=== PATIENT | female | born 1990 | race Caucasian/White ===

== ENCOUNTER 2018-08-01 12:30 | Emergency (ER) | payer SELFPAY ==
[2018-08-01 14:01] LABS: ABS Basophils 0.1 10^3/ul (0-0.2); ABS Eosinophils 0.2 10^3/ul (0-0.6); ABS Lymphocytes 2.1 10^3/ul (1.0-4.8); ABS Monocytes 0.8 10^3/ul (0-0.8); ABS Neutrophils 11.3 10^3/ul (1.5-7.7); ABS Nucleated RBC 0 10^3/ul; Eosinophil % 1.4 %; Hematocrit 45 % (35-47); Hemoglobin 15.1 g/dl (12.0-16.0); Lymphocyte % 14.8 %; Mean Corpuscular HGB Conc 34 g/dl (31-36); Mean Corpuscular Hemoglobin 28 pg (27-31); Mean Corpuscular Volume 82 fL (80-97); Mean Platelet Volume 8.6 fL (7.4-10.4); Nucleated Red Blood Cells % 0; Platelet Count 277 10^3/ul (150-450); Red Blood Count 5.44 10^6/ul (4.00-5.40); Red Cell Distribution Width 13 % (10.5-15); White Blood Count 14.5 10^3/ul (3.5-10.8)
[2018-08-01 14:17] LABS: ALT 42 U/L (7-52); AST 55 U/L (13-39); Albumin 4.3 g/dL (3.2-5.2); Albumin/Globulin Ratio 1.3 (1-3); Alkaline Phosphatase 68 U/L (34-104); Anion Gap 9 mmol/L (2-11); BUN/Creatinine Ratio 16.7 (8-20); Blood Urea Nitrogen 14 mg/dL (6-24); C Reactive Protein 7.98 mg/L (<8.01); CO2 Carbon Dioxide 28 mmol/L (22-32); Calcium 9.6 mg/dL (8.6-10.3); Chloride 101 mmol/L (101-111); EGFR Non-African American 80.2 (>60); Globulin 3.2 g/dL (2-4); Glucose 107 mg/dL (70-100); Potassium 4.2 mmol/L (3.5-5.0); Sodium 138 mmol/L (135-145); Total Protein 7.5 g/dL (6.4-8.9)
[2018-08-01 14:22] LABS: HCG Pregnancy < 0.60 mIU/mL
--- NOTE | 2018-08-01 14:35 | ED ---
Abdominal Pain/Female - HPI Summary HPI Summary: This pt is a 27 y/o female presenting to [facility] c/o upper abd pain since this morning. Pt reports this morning at around 11:00 while she was working on her computer when she had sudden onset of abd pain. She describes upper abd pain as burning that radiates all the way to her back. She additionally notes nausea and vomiting. Denies fever, diarrhea, chest pain, SOB. She currently rates her pain 7/10 in severity. Pt had a bagel with sausage, egg, and cheese and coffee this morning 1 hour prior to onset of abd pain. Pt denies having this abd pain in the past. Denies any PMHx. Denies hx of GERD or gastritis. LMP: currently on it. - History of Current Complaint Chief Complaint: EDAbdPain Stated Complaint: ABD AND BACK PAIN Time Seen by Provider: 08/01/18 13:57 Hx Obtained From: Patient Hx Last Menstrual Period: 02/27/14 Onset/Duration: Sudden Onset, Lasting Hours, Still Present Timing: Hours Severity Currently: Moderate Pain Intensity: 7 Pain Scale Used: 0-10 Numeric Location: Other - upper abd Radiates: Yes Radiates to: Back Character: Burning Aggravating Factor(s): Nothing Alleviating Factor(s): Nothing Associated Signs and Symptoms: Positive: Back Pain, Nausea, Vomiting. Negative : Fever, Chest Pain, Diarrhea Allergies/Adverse Reactions: Allergies Allergy/AdvReac Type Severity Reaction Status Date / Time No Known Allergies Allergy Verified 08/01/18 12:37 Home Medications: Home Medications Desogestrel-Ethinyl Estradiol [Isibloom 28 Day Tablet] 1 tab PO DAILY 08/01/18 [ History Confirmed 08/01/18] PMH/Surg Hx/FS Hx/Imm Hx Endocrine/Hematology History: Denies: Hx Diabetes Cardiovascular History: Denies: Hx Hypertension GI History: Denies: Hx Gastroesophageal Reflux Disease, Other GI Disorders - gastritis - Surgical History Surgery Procedure, Year, and Place: none Infectious Disease History: No Infectious Disease History: Denies: History Other Infectious Disease, Traveled Outside the [place] in Last 30 Days - Family History Known Family History: Negative: Cardiac Disease, Hypertension, Diabetes - Social History Alcohol Use: Occasionally Substance Use Type: Reports: None Smoking Status (MU): Current Some Day Smoker Review of Systems Negative: Fever, Chills Negative: Chest Pain Negative: Shortness Of Breath Positive: Abdominal Pain, Vomiting, Nausea. Negative: Diarrhea Musculoskeletal: Other - POS: back pain All Other Systems Reviewed And Are Negative: Yes Physical Exam - Summary Physical Exam Summary: VITAL SIGNS: Reviewed. GENERAL: Patient is a well-developed and nourished female who is lying comfortable in the stretcher. Patient is not in any acute respiratory distress. HEAD AND FACE: Normocephalic and atraumatic. EYES: PERRLA, EOMI x 2, No injected conjunctiva. EARS: Hearing grossly intact. Ear canals and tympanic membranes are WNL. MOUTH: Oropharynx within normal limits. NECK: Supple, trachea is midline, no adenopathy, no JVD. CHEST: Symmetric, no tenderness at palpation LUNGS: Clear to auscultation bilaterally. No wheezing or crackles. CVS: RRR, S1 and S2 present, no murmurs or gallops appreciated. ABDOMEN: Soft, some epigastric tenderness. No signs of distention. Positive bowel sounds. No rebound no guarding, and no masses palpated. No abdominal bruit or pulsations. EXTREMITIES: FROM in all major joints, no edema, no cyanosis or clubbing. NEURO: Alert and oriented x 3. No acute neurological deficits. Speech is normal. SKIN: Dry and warm Triage Information Reviewed: Yes Vital Signs On Initial Exam: Initial Vitals Temp Pulse Resp BP Pulse Ox 97.1 F 78 15 144/82 98 08/01/18 12:34 08/01/18 12:34 08/01/18 12:34 08/01/18 12:34 08/01/18 12:34 Vital Signs Reviewed: Yes Diagnostics - Vital Signs Vital Signs Temp Pulse Resp BP Pulse Ox 08/01/18 12:34 97.1 F 78 15 144/82 98 - Laboratory Lab Results: Lab Results 08/01/18 08/01/18 Range/Units 13:45 13:45 WBC 14.5 H (3.5-10.8) 10^3/ul RBC 5.44 H (4.00-5.40) 10^6/ul Hgb 15.1 (12.0-16.0) g/dl Hct 45 (35-47) % MCV 82 (80-97) fL MCH 28 (27-31) pg MCHC 34 (31-36) g/dl RDW 13 (10.5-15) % Plt Count 277 (150-450) 10^3/ul MPV 8.6 (7.4-10.4) fL Neut % (Auto) 78.1 % Lymph % (Auto) 14.8 % [place] % (Auto) 5.2 % Eos % (Auto) 1.4 % Baso % (Auto) 0.5 % Absolute Neuts (auto) 11.3 H (1.5-7.7) 10^3/ul Absolute Lymphs (auto) 2.1 (1.0-4.8) 10^3/ul Absolute Monos (auto) 0.8 (0-0.8) 10^3/ul Absolute Eos (auto) 0.2 (0-0.6) 10^3/ul Absolute Basos (auto) 0.1 (0-0.2) 10^3/ul Absolute Nucleated RBC 0 10^3/ul Nucleated RBC % 0 Sodium 138 (135-145) mmol/L Potassium 4.2 (3.5-5.0) mmol/L Chloride 101 (101-111) mmol/L Carbon Dioxide 28 (22-32) mmol/L Anion Gap 9 (2-11) mmol/L BUN 14 (6-24) mg/dL Creatinine 0.84 (0.51-0.95) mg/dL Est GFR ( Amer) 97.0 (>60) Est GFR (Non-Af Amer) 80.2 (>60) BUN/Creatinine Ratio 16.7 (8-20) Glucose 107 H (70-100) mg/dL Calcium 9.6 (8.6-10.3) mg/dL Total Bilirubin 0.70 (0.2-1.0) mg/dL AST 55 H (13-39) U/L ALT 42 (7-52) U/L Alkaline Phosphatase 68 (34-104) U/L C-Reactive Protein 7.98 (<8.01) mg/L Total Protein 7.5 (6.4-8.9) g/dL Albumin 4.3 (3.2-5.2) g/dL Globulin 3.2 (2-4) g/dL Albumin/Globulin Ratio 1.3 (1-3) Lipase 11 (11.0-82.0) U/L Beta HCG, Quant < 0.60 mIU/mL Result Diagrams: 08/01/18 13:45 08/01/18 13:45 Lab Statement: Any lab studies that have been ordered have been reviewed, and results considered in the medical decision making process. - Radiology Abdomen XR Radiology Interpretation Completed By: Radiologist Summary of Radiographic Findings: IMPRESSION: Fluid-filled stomach without evidence of free air or obstructive pattern. Dr. Weiss has reviewed this report. - Ultrasound No standard instances Ultrasound Interpretation Completed By: Radiologist Summary of Ultrasound Findings: Abdomen US IMPRESSION: 1. No sonographically visible findings that would account for the patient's acute presentation. 2. Likely gallbladder polyp versus adenomyomatosis in the gallbladder. 3. Well- circumscribed echogenic avascular lesion in the right lobe of the liver is most consistent with hemangioma that is potentially larger when compared to the November 12, [address] Weiss has reviewed this report. Re-Evaluation - Re-Evaluation First Eval Re-Evaluation Time: 16:51 Comment: I reviewed the lab, XR, and US results with the pt. She will be discharged home. Abdominal Pain Fem Course/Dx - Course Course Of Treatment: Blood work without any significant abnormality except for WBCs of 14.5, glucose 107, AST is 55, test is negative. Patient was given morphine for the pain and a GI cocktail. After medications SYMPTOMS have resolved. RUQ ultrasound IMPRESSION: 1. NO SONOGRAPHICALLY VISIBLE FINDINGS THAT WOULD ACCOUNT FOR THE PATIENT'S ACUTE PRESENTATION. 2. LIKELY GALLBLADDER POLYP VERSUS ADENOMYOMATOSIS IN THE GALLBLADDER. 3. WELL-CIRCUMSCRIBED ECHOGENIC AVASCULAR LESION IN THE RIGHT LOBE OF THE LIVER IS MOST CONSISTENT WITH HEMANGIOMA THAT IS POTENTIALLY LARGER WHEN COMPARED TO THE NOVEMBER 12, 2010 CT EXAMINATION. Abdominal X ray IMPRESSION: Fluid-filled stomach without evidence of free air or obstructive pattern. In the ED course the pain did not return. The patient is feeling better and she has no other complaints. The patient was strongly recommended to follow up with the primary care physician since her hemangioma has increased in size. The patient understands and agrees. She reports that she will follow up with the primary care physician in the next couple days. I discussed all the findings and test results with the patient. Patient was instructed to return to the emergency room immediately if any of the symptoms return or worsens. Plan of care was discussed with the patient and understands and agrees. All questions were answered at patient satisfaction. There were no further complaints or concerns. Lung exam before discharge: CTA B/ L. Good air exchange. No wheezing or crackles heard. CVS: S1 and S2 present. No murmurs appreciated. Patient is alert and oriented x 3. Patient is hemodynamically stable. Patient will be discharged home with follow up from her PCP in the next 2-3 days. - Diagnoses Differential Diagnosis: Positive: Constipation, Gall Bladder Disease, Urinary Tract Infection Provider Diagnoses: Epigastric pain, Hemangioma, Upper abdominal pain Discharge - Sign-Out/Discharge Documenting (check all that apply): Patient Departure - Discharge home Patient Received Moderate/Deep Sedation with Procedure: No - Discharge Plan Condition: Stable Disposition: HOME Prescriptions: Pantoprazole TAB * [Protonix TAB*] 40 mg PO DAILY #14 tab Patient Education Materials: Epigastric Pain (ED) Referrals: [facility] [Outside] [facility] REFERRAL [Outside] Additional Instructions: FOLLOW UP WITH YOUR PRIMARY CARE PROVIDER WITHIN ONE WEEK FOR HIGH BLOOD PRESSURE NOTED TODAY. If you don't have one follow up with [facility] or establish a PCP through [facility] Physician Referral. RETURN TO THE ED FOR ANY NEW OR WORSENING SYMPTOMS. - Billing Disposition and Condition Condition: STABLE Disposition: Home - Attestation Statements Document Initiated by Scribe: Yes Documenting Scribe: Mary Ariza Provider For Whom [facility] is Documenting (Include Credential): Idris Weiss MD Scribe Attestation: Mary Velasquez scribed for Idris Weiss MD on 08/03/18 at 2037. Scribe Documentation Reviewed: Yes Provider Attestation: The documentation as recorded by the Mary gooden accurately reflects the service I personally performed and the decisions made by me, Idris Weiss MD Status of Scribamilcar Document: Viewed
[2018-08-01] MEDS ORDERED: Ondansetron INJ* 2 MG/ML VIAL IV ONE (15:01)
[2018-08-01] MEDS ORDERED: Morphine VIAL* 10 MG/ML 1 ML VIAL IV ONE (15:01)
[2018-08-01] MEDS ORDERED: Al Hydrox/Mg Hydrox/Simet LIQ* 30 ML UDC PO ONE (15:38)
[2018-08-01] MEDS ORDERED: Lidocaine 2% VISCOUS* 15 ML UDC PO ONE (15:38)
[2018-08-01 16:30] LABS: Urine Appearance Cloudy; Urine Bilirubin Negative (Negative); Urine Blood Negative (Negative); Urine Color Yellow; Urine Glucose Negative (Negative); Urine Ketones Negative (Negative); Urine Nitrite Negative (Negative); Urine Protein Negative (Negative); Urine Specific Gravity 1.008 (1.010-1.030); Urine Urobilinogen Negative (Negative)
[2018-08-01 17:05] VITALS: BP 135/98
== END 2018-08-01 17:04 | disposition home or self-care (01) ==
LOC: ED 12:30
DX: M54.9 Dorsalgia, unspecified (principal); D18.01 Hemangioma of skin and subcutaneous tissue; R11.2 Nausea with vomiting, unspecified; R10.10 Upper abdominal pain, unspecified; Z72.0 Tobacco use; R10.13 Epigastric pain
CPT/HCPCS: 36415; 74019; 76705; 80053; 81003; 83690; 84702; 85025; 86140; 96374; 96375; 99283; A9270-GY; J2270; J2405